=== PATIENT | female | born 1990 | race Caucasian/White ===

== ENCOUNTER 2017-12-31 09:16 | Emergency (ER) | payer MEDICAID ==
[2017-12-31 09:19] VITALS: BP 139/86
[2017-12-31] MEDS ORDERED: AMOX-422 PO (10:00)
== END 2017-12-31 10:07 | disposition home or self-care (01) ==
LOC: ER 09:17
DX: J06.9 Acute upper respiratory infection, unspecified (principal); Z87.891 Personal history of nicotine dependence; Z79.899 Other long term (current) drug therapy
CPT/HCPCS: 99283

== ENCOUNTER 2018-03-27 11:27 | Emergency (ER) | payer MEDICAID ==
[~2018-03-27] VITALS: Ht 172.7 cm; Wt 53.7 kg
[2018-03-27 11:32] VITALS: BP 154/104
[2018-03-27 12:18] LABS: CLARITY,URINE SLIGHTLY CLOUDY (Clear); COLOR,URINE YELLOW (Yellow); GLUCOSE, URINE NEGATIVE (Neg); KETONES,URINE NEGATIVE (Neg); LEUKOCYTE ESTERASE ,URINE MODERATE (Neg); NITRITES, URINE POSITIVE (Neg); OCCULT BLOOD,URINE SMALL (Neg); PROTEIN,URINE NEGATIVE (Neg); UROBILINOGEN,URINE 0.2 E.U/dL (0.2-1.0)
[2018-03-27 12:19] LABS: UA COLLECTION TYPE CLN CATCH MIDSTREAM
[2018-03-27 12:20] LABS: URINE HCG NEGATIVE (NEG)
[2018-03-27] MEDS ORDERED: PHEN-716 PO (12:21)
[2018-03-27] MEDS ORDERED: NITR100C6 PO (12:21)
[2018-03-27 12:24] LABS: BACTERIA,URINE 1+ /HPF (Neg); MUCUS STRANDS NONE SEEN /LPF (Neg); RBC,URINE 0-2 /HPF (0-2); SQUAMOUS EPITHELIAL CELL,UR FEW /LPF (FEW); WBC CLUMPS,URINE FEW /HPF (NEGATIVE); WBC,URINE 20-30 /HPF (0-4)
== END 2018-03-27 12:31 | disposition home or self-care (01) ==
LOC: ER 11:27
DX: N39.0 Urinary tract infection, site not specified (principal); Z79.899 Other long term (current) drug therapy
CPT/HCPCS: 81001; 81025; 87077; 87088; 87186; 99284

== ENCOUNTER 2018-07-07 20:14 | Emergency (ER) | payer MEDICAID ==
[~2018-07-07] VITALS: Ht 170.2 cm; Wt 56.0 kg
[~2018-07-07 20:14] MED LIST: NITR100C6 PO; PHEN-716 PO
[2018-07-07 21:15] LABS: URINE HCG NEGATIVE (NEG)
[2018-07-07 21:40] LABS: CLARITY,URINE CLEAR (Clear); COLOR,URINE YELLOW (Yellow); GLUCOSE, URINE NEGATIVE (Neg); KETONES,URINE NEGATIVE (Neg); LEUKOCYTE ESTERASE ,URINE NEGATIVE (Neg); NITRITES, URINE NEGATIVE (Neg); OCCULT BLOOD,URINE NEGATIVE (Neg); PROTEIN,URINE NEGATIVE (Neg); UROBILINOGEN,URINE 0.2 E.U/dL (0.2-1.0)
[2018-07-07 21:48] LABS: UA COLLECTION TYPE CLN CATCH MIDSTREAM
[2018-07-07 21:54] LABS: BASOPHILS % (AUTO) 0.3 % (0-1); EOSINOPHILS # (AUTO) 0.5 X10'3 (0-0.9); EOSINOPHILS % (AUTO) 3.1 % (0-6); HEMATOCRIT 41.3 % (35.0-45.0); HEMOGLOBIN 14.1 g/dl (12.0-16.0); LYMPHOCYTES # (AUTO) 1.5 X10'3 (1.1-4.8); LYMPHOCYTES % (AUTO) 9.1 % (21-51); MEAN CORPUSCULAR HEMOGLOBIN 30.6 PG (27.0-31.0); MEAN CORPUSCULAR HGB CONC 34.2 % (33.0-36.5); MEAN CORPUSCULAR VOLUME 89.6 FL (78-98); MEAN PLATELET VOLUME 7.3 FL (7.4-10.4); MONOCYTES # (AUTO) 0.5 X10'3 (0-0.9); MONOCYTES % (AUTO) 2.9 % (2-12); NEUTROPHILS # (AUTO) 13.9 X10'3 (1.8-7.7); NEUTROPHILS % (AUTO) 84.6 % (42-75); PLATELET COUNT 297 X10'3 (140-440); RED BLOOD COUNT 4.61 X10'6 (4.20-5.60); RED CELL DISTRIBUTION WIDTH 12.9 % (11.5-14.5); WHITE BLOOD COUNT 16.5 X10'3 (4.5-11.0)
[2018-07-07 22:07] LABS: INR 0.9 INR; PROTHROMBIN TIME 9.5 SECONDS (9.0-12.0)
[2018-07-07 22:12] LABS: ALANINE AMINOTRANSFERASE 23 U/L (12-78); ALBUMIN 3.9 G/DL (3.4-5.0); ALBUMIN/GLOBULIN RATIO 1.4 (1.1-1.5); ALKALINE PHOSPHATASE 45 IU/L (46-116); ANION GAP 7 (8-16); ASPARTATE AMINO TRANSFERASE 15 U/L (10-37); BILIRUBIN,TOTAL 0.3 MG/DL (0.1-1.0); BLOOD UREA NITROGEN 16 MG/DL (7-18); CALCIUM 9.4 MG/DL (8.5-10.1); CHLORIDE 104 MMOL/L (99-107); CREATININE 0.94 MG/DL (0.40-0.90); GLUCOSE 93 MG/DL (70-104); LIPASE 153 U/L (73-393); POTASSIUM 4.2 MMOL/L (3.5-5.1); SODIUM 138 MMOL/L (135-145); TOTAL CARBON DIOXIDE 27.1 MMOL/L (24-32); TOTAL PROTEIN 6.7 G/DL (6.4-8.2); eGFR 71 ML/MIN
[2018-07-08 00:44] VITALS: BP 127/80
== END 2018-07-08 00:46 | disposition home or self-care (01) ==
LOC: ER 20:15
DX: R55 Syncope and collapse (principal); N83.201 Unspecified ovarian cyst, right side; R10.32 Left lower quadrant pain; R10.31 Right lower quadrant pain
CPT/HCPCS: 36415; 76856; 80053; 81003; 81025; 83690; 85025; 85610; 93005; 99285